=== PATIENT | male | born 1995 | race Two or more races ===

== ENCOUNTER 2018-09-21 12:43 | Emergency (ER) | payer SELFPAY ==
[~2018-09-21] VITALS: Ht 167.6 cm; Wt 54.4 kg
[~2018-09-21 12:43] MED LIST: IBUPROFEN600 MG PO; NKM; ZOFRAN8 MG ORAL
[2018-09-21 12:55] VITALS: BP 118/74
--- NOTE | 2018-09-21 13:22 | Emergency Room Report ---
History of Present Illness General Chief Complaint: Pain Source: Patient Present Illness HPI 23-year-old male with no significant past medical history here complaining of 3 days of left side pain. Patient denies injury. He reports his pain started as he woke up one day and sleeping on the affected side and progressively got worse when he tried to lift heavy objects at work. Denies fallen injury. Denies pain radiation and is rating her pain 7 out of 10 with minimal relief when taking Tylenol. Denies shortness of breath, chest pain, palpitation, hematuria, urinary frequency, and abdominal pain. Denies nausea and vomiting. Denies saddle paresthesia, urinary and bowel incontinence Allergies: Coded Allergies: No Known Allergies (Unverified , 05/12/13) Patient History Past Medical History: see triage record Past Surgical History: unable to obtain Pertinent Family History: none Immunizations: UTD Reviewed Nursing Documentation: PMH: Agreed; PSxH: Agreed Nursing Documentation-PMH Past Medical History: No Stated History Review of Systems All Other Systems: negative except mentioned in HPI Physical Exam Vital Signs Date Time Temp Pulse Resp B/P (MAP) Pulse Ox O2 Delivery O2 Flow Rate FiO2 09/21/18 12:55 97.9 89 18 118/74 (89) 96 Room Air Sp02 EP Interpretation: reviewed, normal General Appearance: normal inspection, well appearing, no apparent distress Head: normocephalic, atraumatic Eyes: bilateral eye normal inspection, bilateral eye PERRL ENT: normal ENT inspection, hearing grossly normal, normal pharynx Neck: normal inspection, full range of motion, supple Respiratory: normal inspection, chest non-tender, lungs clear, no rhonchi, no wheezing Cardiovascular #1: normal inspection, regular rate, rhythm, no edema, no murmur , normal capillary refill Gastrointestinal: normal inspection, soft Genitourinary: no CVA tenderness Musculoskeletal: back normal, digits/nails normal, gait/station normal, non- tender Neurologic: normal inspection, alert, oriented x3, responsive Psychiatric: normal inspection, judgement/insight normal Skin: normal inspection, normal color, no rash, warm/dry Lymphatic: normal inspection Medical Decision Making PA Attestation All my diagnosis and treatment plans were reviewed ad discussed with my supervising physician Dr. Ta Diagnostic Impression: Primary Impression: Costochondritis ER Course 23-year-old male with no significant past medical history here complaining of 3 days of left side pain. Patient denies injury. He reports his pain started as he woke up one day and sleeping on the affected side and progressively got worse when he tried to lift heavy objects at work. Denies fallen injury. Denies pain radiation and is rating her pain 7 out of 10 with minimal relief when taking Tylenol. Denies shortness of breath, chest pain, palpitation, hematuria, urinary frequency, and abdominal pain. Denies nausea and vomiting. Denies saddle paresthesia, urinary and bowel incontinence Ddx considered but are not limited to: thoracic spine sprain, strain, costochondritis, pylonephritis Vital signs: are WNL, pt. is afebrile H&PE are most consistent with: costoChondritis ORDERS: naproxyn, Robaxin ED INTERVENTIONS: None required at this time. DISCHARGE: At this time pt. is stable for d/c to home. Will provide printed patient care instructions, and any necessary prescriptions. Care plan and follow up instructions have been discussed with the patient prior to discharge. No x-rays needed at this point as there was no bone involvement and no injury alternation between icing and heating the affected area and no strenuous physical activity advised to the patient following up with a primary care provider highly advised Last Vital Signs Date Time Temp Pulse Resp B/P (MAP) Pulse Ox O2 Delivery O2 Flow Rate FiO2 09/21/18 12:55 97.9 89 18 118/74 96 Room Air Disposition: HOME, SELF-CARE Condition: Stable Scripts Methocarbamol* (ROBAXIN*) 500 Mg Tablet 500 MG PO TID, #21 TAB 0 Refills Prov: Alfonso Noble 09/21/18 Naproxen* (NAPROXEN*) 500 Mg Tablet 500 MG ORAL TWICE A DAY, #30 TAB Prov: Alfonso Noble 09/21/18 Patient Instructions: Muscle Cramps and Spasms, [id number] Additional Instructions: follow up with the primary Dr if worsening symptoms. Alfonso Noble September 21, 2018 13:22
[2018-09-21] MEDS ORDERED: NAPROXEN500 M2 ORAL (13:23)
[2018-09-21] MEDS ORDERED: ROBAXIN500 MG PO (13:23)
[2018-09-21 13:31] VITALS: BP 120/79
== END 2018-09-21 13:31 | disposition home or self-care (01) ==
LOC: EMR 13:20
DX: M94.0 Chondrocostal junction syndrome [Tietze] (principal)
CPT/HCPCS: 99282